=== PATIENT | female | born 1940 | race Caucasian/White ===

== ENCOUNTER → 2018-04-19 07:21 | Outpatient (CLI) | payer MEDICARE, BC, SELFPAY ==
[2018-04-19 08:41] LABS: Cholesterol 139 mg/dL (140-199); HDL Cholesterol 52 mg/dL (40-60); LDL Cholesterol Calculated 57 mg/dL (<100); Triglycerides 150 mg/dL (35-150)
== END ==
PROVIDERS: PCP Family Medicine; Visit Provider Family Medicine
DX: E78.00 Pure hypercholesterolemia, unspecified (principal)
CPT/HCPCS: 36415; 80061

== ENCOUNTER → 2018-07-04 10:05 | Outpatient (CLI) | payer MEDICARE, BC, SELFPAY | PROVIDERS: Family Provider Orthopaedic Surgery; Visit Provider Student in an Organized Health Care Education/Training Program | DX: M85.88 Other specified disorders of bone density and structure, other site (principal); Z78.0 Asymptomatic menopausal state; Z82.62 Family history of osteoporosis | CPT/HCPCS: 77080 ==

== ENCOUNTER → 2018-07-29 11:35 | Outpatient (CLI) | payer MEDICARE, BC, SELFPAY ==
--- NOTE | 2018-07-29 | DI.MG.S_ITS ---
BILATERAL DIGITAL SCREENING MAMMOGRAM 3D/2D WITH CAD: 07/29/2018 CLINICAL: Routine screening. Comparison is made to exams dated: 07/12/2017 mammogram, 07/04/2016 mammogram - [facility], and 06/10/2015 mammogram - [facility]. The tissue of both breasts is predominantly fatty. Current study was also evaluated with a Computer Aided Detection (CAD) system. No significant masses, calcifications, or other findings are seen in either breast. There has been no significant interval change. IMPRESSION: NEGATIVE There is no mammographic evidence of malignancy. A 1 year screening mammogram is recommended. This exam was interpreted at Station ID: [id number]. NOTE: For mammograms, a report in lay terms will be sent to the patient. Approximately 15% of breast malignancies will not be visualized mammographically. In the management of a palpable breast mass, a negative mammogram must not discourage biopsy of a clinically suspicious lesion. Electronically Signed By: Elena [email or web address]:07/29/2018 13:15:58 letter sent: Normal Exam ACR BI-RADS Category 1: Negative [id number]
== END ==
PROVIDERS: Visit Provider Student in an Organized Health Care Education/Training Program
DX: Z12.31 Encounter for screening mammogram for malignant neoplasm of breast (principal)
CPT/HCPCS: 77063; 77067

== ENCOUNTER → 2018-09-09 09:35 | Outpatient (CLI) | payer MEDICARE, BC, SELFPAY ==
[2018-09-09 11:15] LABS: Vitamin D 25 Hydroxy (D3) 58.3 ng/mL (30.0-100.0)
== END ==
PROVIDERS: PCP Student in an Organized Health Care Education/Training Program; Visit Provider Student in an Organized Health Care Education/Training Program
DX: M85.80 Other specified disorders of bone density and structure, unspecified site (principal)
CPT/HCPCS: 36415; 82306

== ENCOUNTER → 2019-01-10 14:24 | Outpatient (CLI) | payer MEDICARE, BC, SELFPAY ==
[2019-01-10 15:43] LABS: Blood Urea Nitrogen 31 mg/dL (7-17); Calcium 9.6 mg/dL (8.4-10.2); Carbon Dioxide 30 mmol/L (22-32); Chloride 98 mmol/L (98-107); Estimated Glomerular Filt Rate 53.5 mL/min (>60); Glucose 80 mg/dL (80-110); HEMOLYSIS < 15 (0-50); Sodium 138 mmol/L (137-145)
== END ==
PROVIDERS: PCP Student in an Organized Health Care Education/Training Program; Visit Provider Student in an Organized Health Care Education/Training Program
DX: I10 Essential (primary) hypertension (principal); Z51.81 Encounter for therapeutic drug level monitoring; Z79.1 Long term (current) use of non-steroidal anti-inflammatories (NSAID)
CPT/HCPCS: 36415; 80048

== ENCOUNTER → 2019-10-01 10:05 | Outpatient (CLI) | payer MEDICARE, BC, SELFPAY | PROVIDERS: PCP Student in an Organized Health Care Education/Training Program; Visit Provider Student in an Organized Health Care Education/Training Program | DX: M85.88 Other specified disorders of bone density and structure, other site (principal); Z78.0 Asymptomatic menopausal state; Z91.89 Other specified personal risk factors, not elsewhere classified; Z82.62 Family history of osteoporosis | CPT/HCPCS: 77080 ==

== ENCOUNTER → 2020-01-27 13:03 | Outpatient (CLI) | payer MEDICARE, BC, SELFPAY ==
[2020-01-27 13:40] LABS: BUN Creatinine Ratio 17.8 (6-22); Blood Urea Nitrogen 19 mg/dL (7-17); Carbon Dioxide 29 mmol/L (22-32); Chloride 100 mmol/L (98-107); Estimated Glomerular Filt Rate 49.3 mL/min (>60); Glucose 94 mg/dL (80-110); HEMOLYSIS < 15 (0-50); Potassium 4.5 mmol/L (3.4-5.1); Sodium 138 mmol/L (137-145)
== END ==
PROVIDERS: PCP Student in an Organized Health Care Education/Training Program; Referring Provider Student in an Organized Health Care Education/Training Program; Visit Provider Student in an Organized Health Care Education/Training Program
DX: I10 Essential (primary) hypertension (principal); Z79.1 Long term (current) use of non-steroidal anti-inflammatories (NSAID)
CPT/HCPCS: 36415; 80048

== ENCOUNTER → 2020-02-04 12:02 | Outpatient (CLI) | payer MEDICARE, BC, SELFPAY ==
--- NOTE | 2020-02-04 12:05 | DI.US.S_ITS ---
PROCEDURE: US RENAL COMPLETE INDICATIONS: WORSENING RENAL FUNCTION TECHNIQUE: Real-time scanning was performed of the kidneys and bladder, with image documentation. COMPARISON: None. FINDINGS: Kidneys: Kidneys are normal in size. Right kidney measures 9.1 cm long; left kidney measures 10.4 cm long. Right renal cortical thickness is 1.0 cm; left renal cortical thickness is 0.8 cm. Renal cortical echotexture is normal. No hydronephrosis or nephrolithiasis. No suspicious solid mass lesions. Bladder: Pre-void bladder volume is 194 mL. Post-void residual is 51 mL. Pre-void images demonstrate no intraluminal masses or stones. On pre-void images, bilateral ureteral jets are noted with color Doppler interrogation. (Of note, ureteral jets may not be detectable in up to 25% of cases due to insufficient differences in specific gravity between ureteral and bladder urine). Miscellaneous: No free pelvic fluid. IMPRESSION: 1. No hydronephrosis or nephrolithiasis. 2. Large postvoid residual. Dictated by: Elena Betts M.D. on 02/04/2020 at 17:03 Approved by: Elena Betts M.D. on 02/04/2020 at 17:04
== END ==
PROVIDERS: PCP Student in an Organized Health Care Education/Training Program; Referring Provider Student in an Organized Health Care Education/Training Program; Visit Provider Student in an Organized Health Care Education/Training Program
DX: N17.9 Acute kidney failure, unspecified (principal)
CPT/HCPCS: 76770

== ENCOUNTER → 2020-02-09 09:33 | Outpatient (CLI) | payer MEDICARE, BC, SELFPAY ==
[2020-02-09 10:22] LABS: Bacteria Urine None Seen; RBC Urine None Seen (0-5/HPF); WBC Urine None Seen (0-5/HPF)
[2020-02-09 10:54] LABS: Appearance Urine UA CLEAR; Bilirubin Urine UA NEGATIVE (NEGATIVE); Color Urine UA YELLOW; Glucose Urine UA NEGATIVE (Negative); Ketones Urine UA NEGATIVE (NEGATIVE); Leukocyte Esterase Urine UA NEGATIVE (NEGATIVE); Nitrite Urine UA NEGATIVE (Negative); Occult Blood Urine UA NEGATIVE (Negative); Protein Urine UA NEGATIVE (Negative); Specific Gravity Urine UA 1.015 (1.000-1.035); Urobilinogen Urine UA 0.2 E.U./dL (0.2)
[2020-02-09 11:22] LABS: Culture Indicated Urine Cult Not Indicated; Urine Comments Microscopic Normal
[2020-02-09 12:46] LABS: Creatinine Urine Random 88.7 mg/dL
[2020-02-09 12:53] LABS: Microalbumi Creatinin Ratio Ur 6.7 ug/mg CR (<30); Microalbumin Urine Random < 0.6 mg/dL (0-1.6)
== END ==
PROVIDERS: PCP Student in an Organized Health Care Education/Training Program; Referring Provider Student in an Organized Health Care Education/Training Program; Visit Provider Student in an Organized Health Care Education/Training Program
DX: N17.9 Acute kidney failure, unspecified (principal)
CPT/HCPCS: 81001; 82043; 82570

== ENCOUNTER → 2021-08-02 16:00 | Outpatient (CLI) | payer MEDICARE, BC, SELFPAY ==
[2021-08-02 19:53] LABS: BUN Creatinine Ratio 21.4 (6-22); Blood Urea Nitrogen 24 mg/dL (7-17); Calcium 10.4 mg/dL (8.4-10.2); Carbon Dioxide 31 mmol/L (22-32); Chloride 97 mmol/L (98-107); Estimated Glomerular Filt Rate 46.7 mL/min (>60); Glucose 82 mg/dL (80-110); HEMOLYSIS 26 (0-50); Potassium 3.8 mmol/L (3.4-5.1); Sodium 140 mmol/L (137-145)
== END ==
PROVIDERS: PCP Student in an Organized Health Care Education/Training Program; Referring Provider Student in an Organized Health Care Education/Training Program; Visit Provider Student in an Organized Health Care Education/Training Program
DX: I10 Essential (primary) hypertension (principal)
CPT/HCPCS: 36415; 80048

== ENCOUNTER → 2021-11-07 10:34 | Outpatient (CLI) | payer MEDICARE, BC, SELFPAY ==
--- NOTE | 2021-11-07 10:36 | DI.RAD.S_ITS ---
PROCEDURE: XR DEXA AXIAL SKELETON INDICATIONS: Osteoporosis screening COMPARISON: None. FINDINGS: This blank DEXA report has been sent in error by the PACS system. The correct and complete report will be forthcoming in 1-2 days. Thank you for your patience and understanding. Dictated by: Linh Yang MD, PhD on 11/07/2021 at 13:27 Approved by: Linh Yang MD, PhD on 11/07/2021 at 13:28
== END ==
PROVIDERS: PCP Student in an Organized Health Care Education/Training Program; Referring Provider Student in an Organized Health Care Education/Training Program; Visit Provider Student in an Organized Health Care Education/Training Program
DX: Z78.0 Asymptomatic menopausal state (principal); Z82.62 Family history of osteoporosis; M85.88 Other specified disorders of bone density and structure, other site
CPT/HCPCS: 77080

== ENCOUNTER → 2022-09-19 12:54 | Outpatient (CLI) | payer MEDICARE, BC, SELFPAY ==
[2022-09-19 13:52] LABS: BUN Creatinine Ratio 14.3 (6-22); Blood Urea Nitrogen 15 mg/dL (7-17); Calcium 9.8 mg/dL (8.4-10.2); Carbon Dioxide 29 mmol/L (22-32); Chloride 98 mmol/L (98-107); Estimated Glomerular Filt Rate 53 mL/min (>60); Glucose 108 mg/dL (80-110); HEMOLYSIS < 15 (0-50); Potassium 3.6 mmol/L (3.4-5.1); Sodium 138 mmol/L (137-145)
== END ==
PROVIDERS: PCP Student in an Organized Health Care Education/Training Program; Referring Provider Internal Medicine; Visit Provider Internal Medicine
DX: I10 Essential (primary) hypertension (principal); N18.31 Chronic kidney disease, stage 3a
CPT/HCPCS: 36415; 80048

== ENCOUNTER → 2022-11-09 14:18 | Outpatient (CLI) | payer MEDICARE, BC, SELFPAY | PROVIDERS: Family Provider Student in an Organized Health Care Education/Training Program; PCP Student in an Organized Health Care Education/Training Program; Referring Provider Student in an Organized Health Care Education/Training Program; Visit Provider Student in an Organized Health Care Education/Training Program | DX: Z78.0 Asymptomatic menopausal state (principal); M81.0 Age-related osteoporosis without current pathological fracture; Z79.83 Long term (current) use of bisphosphonates | CPT/HCPCS: 77080 ==

== ENCOUNTER → 2022-11-29 17:09 | Outpatient (CLI) | payer MEDICARE, BC, SELFPAY ==
[2022-11-29 17:43] LABS: Add Manual Diff / Slide Review NO; Basophils Absolute Auto 100 /uL (0-100); Basophils Percent Auto 0.8 % (0-2); Eosinophils Absolute Auto 200 /uL (0-450); Eosinophils Percent Auto 2.8 % (2-4); Hematocrit 36.8 % (36-46); Hemoglobin 12.8 g/dL (12.0-16.0); Lymphocytes Absolute Auto 1600 /uL (1100-4500); Lymphocytes Percent Auto 22.3 % (25-40); Mean Corpuscular HGB Conc 34.7 % (30-36); Mean Corpuscular Hemoglobin 31.6 PG (26-34); Mean Corpuscular Volume 91.1 fL (80-100); Monocytes Absolute Auto 800 /uL (0-900); Monocytes Percent Auto 11.5 % (3-14); Neutrophils Absolute Auto 4400 /uL (1500-7000); Neutrophils Percent Auto 62.6 % (50-75); Platelet Count 262 X10^3/uL (150-400); Red Blood Cell Count 4.04 X10^6/uL (4.0-5.2); Red Cell Distribution Width 13.4 % (11.6-14.8)
[2022-11-29 18:14] LABS: Alanine Aminotransferase 16 IU/L (<35); Albumin 4.3 g/dL (3.5-5.0); Albumin Globulin Ratio 1.3 (1.0-2.8); Alkaline Phosphatase 82 U/L (38-126); Aspartate Aminotransferase 31 IU/L (14-36); Bilirubin Total 0.4 mg/dL (0.2-1.3); Bilirubin Unconjugated 0.2 mg/dL (0.0-1.1); Globulin 3.2 g/dL (1.7-4.1); HEMOLYSIS < 15 (0-50); Total Protein 7.5 g/dL (6.3-8.2)
[2022-11-29 18:31] LABS: Vitamin D 25 Hydroxy (D3) 56.4 ng/mL (30.0-100.0)
[2022-11-29 18:45] LABS: TSH w/ Reflex to FT4 2.94 uIU/mL (0.47-4.68)
[2022-11-29 19:04] LABS: Vitamin B12 580 pg/mL (239-931)
== END ==
PROVIDERS: Family Provider Student in an Organized Health Care Education/Training Program; PCP Student in an Organized Health Care Education/Training Program; Referring Provider Student in an Organized Health Care Education/Training Program; Visit Provider Student in an Organized Health Care Education/Training Program
DX: F03.90 Unspecified dementia, unspecified severity, without behavioral disturbance, psychotic disturbance, mood disturbance, and anxiety (principal)
CPT/HCPCS: 36415; 80076; 82306; 82607; 84443; 85025

== ENCOUNTER → 2023-01-24 08:41 | Outpatient (CLI) | payer MEDICARE, BC, SELFPAY ==
--- NOTE | 2023-01-24 08:43 | DI.MRI.S_ITS ---
PROCEDURE: MR HEAD/BRAIN WO CON INDICATIONS: DEMENTIA TECHNIQUE: Non-contrast axial T1 spin echo, axial T2 fast spin echo, sagittal and axial FLAIR, coronal T2 fast spin echo, axial gradient echo, axial diffusion and ADC through the brain. COMPARISON: None. FINDINGS: Image quality: Excellent. CSF spaces: Ventricles appear symmetric in size and shape. Basal cisterns are patent. No extra-axial fluid collections. Brain: No intracranial bleeds or mass effects. There is cerebral volume loss for age. There are periventricular and deep white matter chronic small vessel ischemic changes. Brainstem appears normal. Diffusion-weighted images show no acute ischemic insults. No chronic ischemic insults. Normal intravascular flow voids are present. Skull and face: Calvarial bone marrow is normal in signal. Orbits are normal. Sinuses: Sinuses and mastoids are clear. IMPRESSION: 1. Volume loss and small vessel ischemic disease. 2. No acute process. No recent infarct. Dictated by: Tiara Bowden M.D. on 01/24/2023 at 9:44 Approved by: Tiara Bowden M.D. on 01/24/2023 at 9:46
== END ==
PROVIDERS: Family Provider Student in an Organized Health Care Education/Training Program; PCP Student in an Organized Health Care Education/Training Program; Referring Provider Student in an Organized Health Care Education/Training Program; Visit Provider Student in an Organized Health Care Education/Training Program
DX: F03.B0 Unspecified dementia, moderate, without behavioral disturbance, psychotic disturbance, mood disturbance, and anxiety
CPT/HCPCS: 70551

== ENCOUNTER 2023-02-07 13:15 | Outpatient (RCR) | payer MEDICARE, BC, SELFPAY ==
--- NOTE | 2022-11-17 17:29 | ST.OP.ACL ---
Visit Care Team Role Provider Type Mario Wharton MD Attending Provider Physician Family Provider Primary Care Provider Referring Provider Specialty: Internal Medicine Address: [address] [place] [address], [address], [place], [address] Email: [email or web address] Adult Cognitive Linguistic Evaluation PSYCHIATRY INSTRUCTOR Adult Cognitive Linguistic Eval Start: 11/16/22 12:01 Freq: Status: Active Protocol: Document 11/16/22 12:23 (Rec: 11/16/22 13:25 [id number]) Adult Cognitive Linguistic Evaluation Session Time Visit Start Time 10:30 Visit Stop Time 11:40 Total Visit Minutes 70 Visit Information Visit Number 1 Plan of Care Dates 11/16/22 - 02/16/23 Insurance Information Medicare Referral Referring Provider Dr. Mario Wharton Reason for Referral Memory concerns Setting Assessment Location Outpatient Care Visit Type Note Type Initial evaluation Patient Information Identification Type Name Patient History Jazzmine is an 82 year old woman who was referred by her PCP, Dr. Mario Wharton for a cognitive evaluation due to concerns from Jazzmine's family regarding a change in cognitive performance characterized by memory loss, disorganization, increased social isolation, and disorientation. Decline in memory is reported to have occurred 6-12 months ago, per daughter's statement during today's evaluation. Per PCP report on 10/02/22: Memory problems: Recently discussed in a visit on 2021. Her family members have expressed concerns about gradually worsening memory. Her daughter confirms this is continuing to interfere with day-to-day activities. During our previous initial assessment in 2019, she had what looked like an isolated functional memory deficit, but is now complaining of short- term memory losses and sometimes forgets about relatively large events. Definitely has difficulty tracking complex tasks. Has not injured herself or had any accidents related to this main complaint. Denies delusions, compulsions, hallucinations, obsessions, confabulation, SI/HI. Further denies focal neurological signs. There has been no interval change in her status since we last talked about this in April. Language(s) Spoken in the Home Danish Occupation Status Retired Previous Therapy Previous Speech-Language Therapy No Subjective Patient Report Jazzmine arrived to the session alone. Her daughter, Joan, remained on the phone throughout the entire session and participated during the interview and debrief. Jazzmine expressed denial of change in cognitive communication status or decline in activities of daily living. Joan reported that Jazzmine experiences disorientation (e.g., getting lost while driving), disorganization (e.g., used to be very organized but is now misplacing or getting cluttered), and a change in diet due to neglecting consistent food intake (e.g., eating breakfast, lunch, dinner). Joan also reported that Jazzmine is not following conversations well or is not retaining information and will engage in a conversation loop of asking repeated questions during conversation with others. Joan reported that Jazzmine's car was taken away due to concerns regarding getting lost; when mentioned, Jazzmine reported that she did not know that. Joan reports that Jazzmine requires reminders and support to take her medications and regular meals. Joan reported a negative change in the family dynamic due to Jazzmine's denial of cognitive change or difficulties whereby Jazzmine will express frustration over her family pointing out her difficulties. Jazzmine lives with her and younger daughter who oversees the care of Jazzmine and her . Mental Status Responsive,Cooperative Assessment Oral Motor Examination Completed No Results No s/s of dysarthria were present. Patient was fully intelligible and did not report concerns regarding her speech. Informal Assessment Receptive Language Normal No: Uncertainty when given longer sentences and complex speech. Receptive Language Impairment(s) Following 2-step commands, Following 3-step commands, Reading comprehension, Comprehension of conversation Expressive Language Normal Yes: No difficulties expressing self and feelings during conversation. Expressive Language Impairment(s) Automatic speech,Expression of basic wants/needs,Written expression Pragmatic Language Normal Yes: Appropriate social language with both clinicians. Pragmatic Language Impairment(s) Turn-taking,Topic maintenance Speech Normal Yes: No concerns with speech. Articulation and resonance normal. Cognition Normal No Cognitive Impairment(s) Orientation,Attention,Short- term memory,Long-term memory, Executive functioning,Problem solving,Safety awareness Formal Assessment Standardized Test/Screener Type Scales of Cognitive and Communicative Ability (SCCAN) Administration Complete Results Jazzmine received a total raw score of 63 and placed below the 1st percentile rank and in the SCCAN Index of 50. Her results indicate a moderate cognitive impairment. She demonstrated greatest difficulty in the areas of Memory, Reading Comprehension, Attention. She demonstrated mild impairment in Orientation , Speech Comprehension, and Problem Solving. She demonstrated strengths in the areas of Writing and Oral Expression. Findings/Results Cognitive Function Moderately impaired Findings Based on the formal assessment , Jazzmine experiences greatest cognitive communication deficits in the areas of memory and attention. This contributes towards her decreased abilities of executive function (e.g., organization, planning, adaptable thinking, etc.) and affects her ability to functioning independently. Jazzmine was oriented to place and person, not time. Jazzmine demonstrates difficulty recalling information with multiple rollins pieces of information (e.g., time, person, date, purpose). She also demonstrates difficulty with comprehending complex sentences. She demonstrated some self-awareness of her performance and ability during the test when she verbally reflected: I don't know what to do here or I know this is wrong. Jazzmine's attention also plays a large role in her executive functioning abilities whereby inattention hinders retail center receptionist of messages and information. Jazzmine demonstrated strengths in oral expression and writing, whereby she used grammatically correct sentences and demonstrated legible and purposeful handwriting. Jazzmine was observed to follow conversation with both clinicians and her daughter on the phone. She was seen using and checking her agenda to check for appointment dates when scheduling upcoming treatment sessions without prompting. As reported by her daughter, Jazzmine has gotten lost when driving, indicating decreased safety awareness. Based on interview, informal observations, family input, and assessment, it is recommended that Jazzmine attend speech-language therapy for purposes to improve abilities to meet ADLs and safety, especially for purposes of health and emergency. Recommend referral to neuropsych or neurologist for further assessment. Cognitive Communication Deficits Self-awareness of Cognitive- Limited awareness (minimal Communication Deficits appreciation without specificity) Impact on Functioning Activity Limits/Particip.Rest. Mild: General Tasks and Demands Mod: Household Tasks Safety Risks Mod: Managing Medication Traveling Alone in Community Prognosis Prognosis Good Based on Cognitive status,Family support Comment Strong family support and external strategies, and written and oral express Plan of Care Speech-Language Treatment Yes Frequency 1x/week Duration 3 months Patient/Caregiver Education Described results of evaluation,Patient expressed understanding of evaluation, Patient expressed agreement with goals and treatment plans ,Family/caregivers expressed understanding of evaluation, Family/caregivers expressed agreement with goals and treatment plan,Patient expressed understanding of safety precautions,Patient requires further education/ training,Family/caregivers require further education/ training Short Term Goals Jazzmine will use external compensatory strategies (e.g., calendar, notification board, medicine organizer, smartphone notifications, note -taking) to remember important and relevant information in everyday activities with 90% success. Scale Manager Goals Jazzmine will demonstrate and report independent use of compensatory memory strategies to aid in everyday tasks with 100% success. Discharge Recommendations Home
--- NOTE | 2022-11-17 17:30 | ST.OPPOC ---
Physical, Occupational & Speech Therapy At [facility] Visit Care Team Role Provider Type Mario Wharton MD Attending Provider Physician Family Provider Primary Care Provider Referring Provider Address: [address] [place] [address], [address], [place], [address] Speech Pathology Plan of Care EARTH SCIENCE PROFESSOR Clinical Instructor Line Start: 11/16/22 12:01 Freq: Status: Active Protocol: Document 11/16/22 12:23 (Rec: 11/16/22 13:25 [id number]) Clinical Instructor Signature Clinical Instructor Clinical Instructor Yes Speech Pathology Plan of Care Plan of Care Dates 11/16/22 - 02/16/[address] Mario Wharton Patient History Jazzmine is an 82 year old woman who was referred by her PCP, Dr. Mario Wharton for a cognitive evaluation due to concerns from Jazzmine's family regarding a change in cognitive performance characterized by memory loss, disorganization, increased social isolation, and disorientation. Decline in memory is reported to have occurred 6- 12 months ago, per daughter's statement during today's evaluation. Per PCP report on 10/02/22: Memory problems: Recently discussed in a visit on 04/26/2022. Her family members have expressed concerns about gradually worsening memory. Her daughter confirms this is continuing to interfere with day-to-day activities. During our previous initial assessment in 2019, she had what looked like an isolated functional memory deficit, but is now complaining of short-term memory losses and sometimes forgets about relatively large events. Definitely has difficulty tracking complex tasks. Has not injured herself or had any accidents related to this main complaint. Denies delusions, compulsions, hallucinations, obsessions, confabulation, SI/HI. Further denies focal neurological signs. There has been no interval change in her status since we last talked about this in April. Self-awareness of Cognitive- Limited awareness (minima Communication Deficits General Tasks and Demands Mild Household Tasks Moderate Managing Medication Moderate Traveling Alone in Community Moderate Short Term Goals Jazzmine will use external compensatory strategies (e.g., calendar, notification board, medicine organizer, smartphone notifications, note-taking ) to remember important and relevant information in everyday activities with 90% success. Senior Enterprise Architect Goals Jazzmine will demonstrate and report independent use of compensatory memory strategies to aid in everyday tasks with 100% success. Comment: Electronically Signed by: Lizette Zelaya 11/17/22 2015 If you are in agreement with this Plan of Care, please return a signed and dated copy. I have reviewed this Plan of Care and certify that the skilled therapy services above are required to meet the patient?s needs. Physician Signature Date Printed Name and Credentials Clinical Instructor Signature Printed Name and Credentials
--- NOTE | 2022-11-23 17:12 | ST.OPTN ---
Visit Care Team Role Provider Type Mario Wharton MD Attending Provider Physician Family Provider Primary Care Provider Referring Provider Address: [address] [place] [address], [address], [place], [address] [facility] Treatment Note [facility] Clinical Instructor Line Start: 11/16/22 12:01 Freq: Status: Active Protocol: Document 11/16/22 12:23 (Rec: 11/16/22 13:25 [id number]) Clinical Instructor Signature Clinical Instructor Clinical Instructor Yes [facility] Treatment Note Start: 11/23/22 14:59 Freq: Status: Active Protocol: Document 11/23/22 15:00 LNK (Rec: 11/23/22 15:36 LNK [id number]) Speech Pathology Treatment Note Session Time Visit Start Time 09:30 Visit Stop Time 10:30 Total Visit Minutes 60 Visit Information Visit Number 2 Plan of Care Dates 11/16/22 - 02/16/23 Setting Treatment Setting Outpatient Care Visit Type Note Type Treatment Note Next Note Type Next Note Type Treatment Note General Information Patient History Jazzmine is an 82 year old woman who was referred by Dr. Mario Wharton for a cognitive evaluation due to concerns from Jazzmine's family regarding a change in cognitive performance characterized by memory loss, disorganization, increased social isolation, and disorientation. Decline in memory is reported to have occured 6-12 months ago, per daughter Joan. Jazzmine expresses denial of change in cognitive communication status or decline in activities of daily living. Joan reported that Jazzmine experiences disorientation (e.g., getting lost while driving), disorganization (e.g., used to be very organized but is now misplacing or getting cluttered), and a change in diet due to neglecting consistent food intake (e.g., eating breakfast, lunch, dinner). Joan also reported that Jazzmine is not following conversations well or is not retaining information. Jazzmine has been observed to engage in a conversation loops of asking repeated questions during conversation with others. Joan reported that Jazzmine's car was taken away due to concerns regarding getting lost; when mentioned, Jazzmine reported that she did not know that. Joan reports that Jazzmine requires reminders and support to take her medications and regular meals. Jazzmine lives with her . Jazzmine's youngest daughter oversees the care of Jazzmine and her lives next doot to her parents. Subjective Identification Type Name,Date of Others Present Family Observations/Patient Presentation Based on formal assessment results obtained on 11.16.22, Jazzmine experiences significant cognitive communication deficits in the areas of memory and attention. This negatively impacts her decreased abilities of executive function (e.g., organization, planning, adaptable thinking, etc.) and affects her ability to functioning independently. Jazzmine was oriented to place and person, not time. She demonstrated difficulty recalling information with multiple rollins pieces of information (e.g., time, person, date, purpose) and complex sentences. She demonstrated some self- awareness of her performance and ability during the test when she verbally reflected: I don't know what to do here or I know this is wrong. Chief Complaint(s) Cognitive Patient Knowledge/Awareness of [facility] Role Fair in Treatment Parent/Caretake Knowledge/Awareness of Good [facility] Role in Treatment Objective Short Term Goals 1) Jazzmine and caregivers will be educated in, and will implement, external memory strategies to enable Jazzmine to maintain independence and ability to perform ADLs. 2) Jazzmine and caregivers will set up a white board in as a central location for information (e.g., calendar, notification white board and meal time check-off lists etc. ) to aid Jazzmine in orientation to planned activities and important information re: ADLs per pt/family report 3) Jazzmine will remember to check the white board for daily schedule/events, important and relevant information in everyday activities daily per pt/family report. Treatment Activities Jazzmine was seen with her daughter Joan. Jazzmine continued to indicate she ffelt that her memory skills and overall cognition was fine. Jazzmine's daughter came with many questions, which were answered to her satisfaction. Therapeutic strategies were described to Jazzmine and her daughter, which included education re: external memory strategies, working with Jazzmine to use such strategies to navigate ADLs and to increase her safety at home. Additionally, both Jazzmine and her mother were encouraged to consult with Dr. Cordero re; Jazzmine's safety with driving. A referral to a neurologist was also recommended with a need to discuss Jazzmine's options with Dr. Cordero. Assessment Patient Response to Treatment Fair Rehab Potential Good Impairments Identified Cognitive communication Reviewed with Patient Goals,Home Exercise Program Patient/Caregiver Understanding Good Plan Amount of Therapy Recommended 3 Months Frequency of Treatment Once a Week Length of Session 60 Minutes Treatment Emphasis Next Session Prt/family education; strategy introduction Therapeutic Contents Cognitive-Linguistic Training Provided Patient/Caregiver Instruction Plan of Care,Questions/ Concerns Suggested Referral Neurology
--- NOTE | 2022-11-23 17:13 | ST.OPPOC ---
Physical, Occupational & Speech Therapy At [facility] Visit Care Team Role Provider Type Mario Wharton MD Attending Provider Physician Family Provider Primary Care Provider Referring Provider Address: [address] [place] [address], [address], [place], [address] Speech Pathology Plan of Care ASSISTANT CITY ATTORNEY Clinical Instructor Line Start: 11/16/22 12:01 Freq: Status: Active Protocol: Document 11/16/22 12:23 (Rec: 11/16/22 13:25 [id number]) Clinical Instructor Signature Clinical Instructor Clinical Instructor Yes Speech Pathology Plan of Care Plan of Care Dates 11/16/22 - 02/16/[address] Mario Wharton Patient History Jazzmine is an 82 year old woman who was referred by Dr. Mario Wharton for a cognitive evaluation due to concerns from Jazzmine's family regarding a change in cognitive performance characterized by memory loss, disorganization, increased social isolation, and disorientation. Decline in memory is reported to have occurred 6-12 months ago, per daughter Joan. Jazzmine expresses denial of change in cognitive communication status or decline in activities of daily living. Joan reported that Jazzmine experiences disorientation ( e.g., getting lost while driving), disorganization (e.g., used to be very organized but is now misplacing or getting cluttered), and a change in diet due to neglecting consistent food intake (e.g., eating breakfast, lunch, dinner). Joan also reported that Jazzmine is not following conversations well or is not retaining information. Jazzmine has been observed to engage in a conversation loops of asking repeated questions during conversation with others. Joan reported that Jazzmine's car was taken away due to concerns regarding getting lost; when mentioned, Jazzmine reported that she did not know that. Jazzmine lives with her . Jazzmine's youngest daughter oversees the care of Jazzmine and her lives next door to her parents. Impairments Identified Cognitive communication Self-awareness of Cognitive- Limited awareness (minima Communication Deficits General Tasks and Demands Mild Household Tasks Moderate Managing Medication Moderate Traveling Alone in Community Moderate Short Term Goals 1) Jazzmine and caregivers will be educated in, and will implement, external memory strategies to enable Jazzmine to maintain independence and ability to perform ADLs. 2) Jazzmine and caregivers will set up a white board in as a central location for information (e.g., calendar, notification white board and meal time check-off lists etc.) to aid Jazzmine in orientation to planned activities and important information re: ADLs per pt/family report 3) Jazzmine will remember to check the white board for daily schedule/events, important and relevant information in everyday activities daily per pt/family report. Comment: Electronically Signed by: LIAM Charles 11/23/22 [id number] If you are in agreement with this Plan of Care, please return a signed and dated copy. I have reviewed this Plan of Care and certify that the skilled therapy services above are required to meet the patient?s needs. Physician Signature Date Printed Name and Credentials Clinical Instructor Signature Printed Name and Credentials
--- NOTE | 2022-11-30 12:05 | ST.OPTN ---
Visit Care Team Role Provider Type Mario Wharton MD Attending Provider Physician Family Provider Primary Care Provider Referring Provider Address: [address] [place] [address], [address], [place], [address] WELDER OPERATOR Treatment Note WELDER OPERATOR Clinical Instructor Line Start: 11/16/22 12:01 Freq: Status: Active Protocol: Document 11/16/22 12:23 (Rec: 11/16/22 13:25 [id number]) Clinical Instructor Signature Clinical Instructor Clinical Instructor Yes WELDER OPERATOR Treatment Note Start: 11/23/22 14:59 Freq: Status: Active Protocol: Document 11/30/22 12:00 LNK (Rec: 11/30/22 12:05 LNK [id number]) Speech Pathology Treatment Note Session Time Visit Start Time 09:30 Visit Stop Time 10:30 Total Visit Minutes 60 Visit Information Visit Number 3 Plan of Care Dates 11/16/22 - 02/16/23 Setting Treatment Setting Outpatient Care Visit Type Note Type Treatment Note Next Note Type Next Note Type Treatment Note General Information Patient History Jazzmine is an 82 year old woman who was referred by Dr. Mario Wharton for a cognitive evaluation due to concerns from Jazzmine's family regarding a change in cognitive performance characterized by memory loss, disorganization, increased social isolation, and disorientation. Decline in memory is reported to have occured 6-12 months ago, per daughter Joan. Jazzmine expresses denial of change in cognitive communication status or decline in activities of daily living. Joan reported that Jazzmine experiences disorientation (e.g., getting lost while driving), disorganization (e.g., used to be very organized but is now misplacing or getting cluttered), and a change in diet due to neglecting consistent food intake (e.g., eating breakfast, lunch, dinner). Joan also reported that Jazzmine is not following conversations well or is not retaining information. Jazzmine has neen observed to engage in a conversation loops of asking repeated questions during conversation with others. Joan reported that Jazzmine's car was taken away due to concerns regarding getting lost; when mentioned, Jazzmine reported that she did not know that. Joan reports that Jazzmine requires reminders and support to take her medications and regular meals. Jazzmine lives with her . Jazzmine's youngest daughter oversees the care of Jazzmine and her lives next doot to her parents. Subjective Identification Type Name,Date of Others Present Family Observations/Patient Presentation Based on formal assessment results obtained on 11.16.22, Jazzmine experiences significant cognitive communication deficits in the areas of memory and attention. This negatively impacts her decreased abilities of executive function (e.g., organization, planning, adaptable thinking, etc.) and affects her ability to functioning independently. Jazzmine was oriented to place and person, not time. She demonstrated difficulty recalling information with multiple rollins pieces of information (e.g., time, person, date, purpose) and complex sentences. She demonstrated some self- awareness of her performance and ability during the test when she verbally reflected: I don't know what to do here or I know this is wrong. Chief Complaint(s) Cognitive Patient Knowledge/Awareness of WELDER OPERATOR Role Fair in Treatment Parent/Caretake Knowledge/Awareness of Good WELDER OPERATOR Role in Treatment Objective Short Term Goals 1) Jazzmine and caregivers will be educated in, and will implement, external memory strategies to enable Jazzmine to maintain independence and ability to perform ADLs. 2) Jazzmine and caregivers will set up a white board in as a central location for information (e.g., calendar, notification white board and meal time check-off lists etc. ) to aid Jazzmine in orientation to planned activities and important information re: ADLs per pt/family report 3) Jazzmine will remember to check the white board for daily schedule/events, important and relevant information in everyday activities daily per pt/family report. Treatment Activities Jazzmine was seen again with her daughter Joan. Jazzmine continues to indicate she is capable of driving and cooking , etc. her daughter described an incident of forgetting something on the stove that was burned and smoking. Jazzmine's daughter came with more questions, which were answered to her A goal Setting Worksheet was provided and described for the pt and her daughter to complete. Functional rehabilitation was defined and explained to Jazzmine and daughter. The will retun the goal setting worksheet next session. Assessment Patient Response to Treatment Fair Rehab Potential Good Impairments Identified Cognitive communication Reviewed with Patient Goals,Home Exercise Program Patient/Caregiver Understanding Good Plan Amount of Therapy Recommended 3 Months Frequency of Treatment Once a Week Length of Session 60 Minutes Treatment Emphasis Next Session Prt/family education; strategy introduction Therapeutic Contents Cognitive-Linguistic Training Provided Patient/Caregiver Instruction Plan of Care,Questions/ Concerns Suggested Referral Neurology
--- NOTE | 2022-12-21 16:32 | ST.OPTN ---
Visit Care Team Role Provider Type Mario Wharton MD Attending Provider Physician Family Provider Primary Care Provider Referring Provider Address: [address] [place] [address], [address], [address] ROLL OUT MANAGER Treatment Note ROLL OUT MANAGER Clinical Instructor Line Start: 11/16/22 12:01 Freq: Status: Active Protocol: Document 11/16/22 12:23 (Rec: 11/16/22 13:25 [id number]) Clinical Instructor Signature Clinical Instructor Clinical Instructor Yes ROLL OUT MANAGER Treatment Note Start: 11/23/22 14:59 Freq: Status: Active Protocol: Document 12/21/22 15:07 LNK (Rec: 12/21/22 16:31 LNK [id number]) Speech Pathology Treatment Note Session Time Visit Start Time 09:30 Visit Stop Time 10:30 Total Visit Minutes 120 Visit Information Visit Number 4 Plan of Care Dates 11/16/22 - 02/16/23 Setting Treatment Setting Outpatient Care Visit Type Note Type Treatment Note Next Note Type Next Note Type Treatment Note General Information Patient History Jazzmine is an 82 year old woman who was referred by Dr. Mario Wharton for a cognitive evaluation due to concerns from Jazzmine's family regarding a change in cognitive performance. Formal assessment results obtained on 11.16.22, Jazzmine experiences significant cognitive communication deficits in the areas of memory and attention. This negatively impacts her decreased abilities of executive function (e.g., organization, planning, adaptable thinking, etc.) and affects her ability to functioning independently. Jazzmine was oriented to place and person, not time. She demonstrated difficulty recalling information with multiple rollins pieces of information (e.g., time, person, date, purpose) and complex sentences. She demonstrated some self- awareness of her performance and ability during the test when she verbally refelcted: I don't know what to do here or I know this is wrong. Based on formal assessment results obtained on 11.16.22, Jazzmine experiences significant cognitive communication deficits in the areas of memory and attention. This negatively impacts her decreased abilities of executive function (e.g., organization, planning, adaptable thinking, etc.) and affects her ability to functioning independently. Jazzmine was oriented to place and person, not time. She demonstrated difficulty recalling information with multiple rollins pieces of information (e.g., time, person, date, purpose) and complex sentences. She demonstrated some self- awareness of her performance and ability during the test when she verbally refelcted: I don't know what to do here or I know this is wrong. Subjective Identification Type Name,Date of Others Present Family Observations/Patient Presentation Jazzmine was accompanied by her 2 daughters. They reported that last , Jazzmine's , Champ, . Chief Complaint(s) Cognitive Patient Knowledge/Awareness of ROLL OUT MANAGER Role Fair in Treatment Parent/Caretake Knowledge/Awareness of Good ROLL OUT MANAGER Role in Treatment Objective Short Term Goals 1) Jazzmine and caregivers will be educated in, and will implement, external memory strategies to enable Jazzmine to maintain independence and ability to perform ADLs. 2) Jazzmine and caregivers will set up a white board in as a central location for information (e.g., calendar, notification white board and meal time check-off lists etc. ) to aid Jazzmine in orientation to planned activities and important information re: ADLs per pt/family report 3) Jazzmine will remember to check the white board for daily schedule/events, important and relevant information in everyday activities daily per pt/family report. Treatment Activities Jazzmine was seen again with her daughters. her daughters were wanting help with helping Jazzmine navigate this period. We discussed the potential for increased confusion and/or disorientation following significant changes for people with dementia. It was suggested that gentle redirection, cuing and assistance to keep Jazzmine focused on current activities. Daughters were concerned about Jazzmine living alone with memory issues. they are interested in options available for Jazzmine and when to start looking. Recommended that they allow Jazzmine time to adjust to this major change before adding another major change. Provided the daughters with written material about external memory aids with examples. Assessment Patient Response to Treatment Fair Rehab Potential Good Impairments Identified Cognitive communication Reviewed with Patient Goals,Home Exercise Program Patient/Caregiver Understanding Good Plan Amount of Therapy Recommended 3 Months Frequency of Treatment Once a Week Length of Session 60 Minutes Treatment Emphasis Next Session Prt/family education; strategy introduction Therapeutic Contents Cognitive-Linguistic Training Provided Patient/Caregiver Instruction Plan of Care,Questions/ Concerns Suggested Referral Neurology
--- NOTE | 2022-12-27 15:10 | ST.OPTN ---
Visit Care Team Role Provider Type Mario Wharton MD Attending Provider Physician Family Provider Primary Care Provider Referring Provider Address: [address] [place] [address], [address], [address] CAR SPOTTER Treatment Note CAR SPOTTER Clinical Instructor Line Start: 11/16/22 12:01 Freq: Status: Active Protocol: Document 11/16/22 12:23 (Rec: 11/16/22 13:25 [id number]) Clinical Instructor Signature Clinical Instructor Clinical Instructor Yes CAR SPOTTER Treatment Note Start: 11/23/22 14:59 Freq: Status: Active Protocol: Document 12/27/22 14:43 LNK (Rec: 12/27/22 15:10 LNK [id number]) Speech Pathology Treatment Note Session Time Visit Start Time 13:30 Visit Stop Time 14:30 Total Visit Minutes 60 Visit Information Visit Number 5 Plan of Care Dates 11/16/22 - 02/16/23 Setting Treatment Setting Outpatient Care Visit Type Note Type Treatment Note Next Note Type Next Note Type Treatment Note General Information Patient History Jazzmine is an 82 year old woman who was referred by Dr. Mario Wharton for a cognitive evaluation due to concerns from Jazzmine's family regarding a change in cognitive performance. Formal assessment results obtained on 11.16.22, Jazzmine experiences significant cognitive communication deficits in the areas of memory and attention. This negatively impacts her decreased abilities of executive function (e.g., organization, planning, adaptable thinking, etc.) and affects her ability to functioning independently. Jazzmine was oriented to place and person, not time. She demonstrated difficulty recalling information with multiple rollins pieces of information (e.g., time, person, date, purpose) and complex sentences. She demonstrated some self- awareness of her performance and ability during the test when she verbally reflected: I don't know what to do here or I know this is wrong. Based on formal assessment results obtained on 11.16.22, Jazzmine experiences significant cognitive communication deficits in the areas of memory and attention. This negatively impacts her decreased abilities of executive function (e.g., organization, planning, adaptable thinking, etc.) and affects her ability to functioning independently. Jazzmine was oriented to place and person, not time. She demonstrated difficulty recalling information with multiple rollins pieces of information (e.g., time, person, date, purpose) and complex sentences. She demonstrated some self- awareness of her performance and ability during the test when she verbally reflected: I don't know what to do here or I know this is wrong. Subjective Identification Type Name,Date of Others Present Family Observations/Patient Presentation Jazzmine was accompanied by her daughter. Her daughter reported that Jazzmine has been keeping busy with her friends and going to the [facility] a couple days each week. She is missing her . Chief Complaint(s) Cognitive Patient Knowledge/Awareness of CAR SPOTTER Role Fair in Treatment Parent/Caretake Knowledge/Awareness of Good CAR SPOTTER Role in Treatment Objective Short Term Goals 1) Jazzmine and caregivers will be educated in, and will implement, external memory strategies to enable Jazzmine to maintain independence and ability to perform ADLs. 2) Jazzmine and caregivers will set up a white board in as a central location for information (e.g., calendar, notification white board and meal time check-off lists etc. ) to aid Jazzmine in orientation to planned activities and important information re: ADLs per pt/family report 3) Jazzmine will remember to check the white board for daily schedule/events, important and relevant information in everyday activities daily per pt/family report. Treatment Activities Jazzmine and her daughter reported that there has been some progress with simplifying Jazzmine's home and keeping her calendar updated. her daughter reported that she has not noticed any increase in confusion and/or disorientation behaviors observed. Reviewed family progress with external memory aids as well as more efficient ways to help Jazzmine with ADLs (i.e., microwave cooking, prepackaged medications, etc.). Jazzmine reported that she feels safe in her home and with her daughter next door, she is comfortable staying in her home. Labels, reminder lists, calendar updates, and a centralized place for information have been initiated. Both Jazzmine and her daughter feel that they need some time to implement these strategies at Jazzmine's home and agreed to take a short break from ST. Jazzmine is scheduled to return in 1 month. Assessment Patient Response to Treatment Fair Rehab Potential Good Impairments Identified Cognitive communication Reviewed with Patient Goals,Home Exercise Program Patient/Caregiver Understanding Good Plan Amount of Therapy Recommended 3 Months Frequency of Treatment Once a Week Length of Session 60 Minutes Treatment Emphasis Next Session Prt/family education; strategy introduction Therapeutic Contents Cognitive-Linguistic Training Provided Patient/Caregiver Instruction Plan of Care,Questions/ Concerns Suggested Referral Neurology
--- NOTE | 2023-02-07 16:44 | ST.OPTN ---
Visit Care Team Role Provider Type Mario Wharton MD Attending Provider Physician Family Provider Primary Care Provider Referring Provider Address: [address] [place] [address], [address], [address] LADIES' LOCKER ROOM ATTENDANT Treatment Note LADIES' LOCKER ROOM ATTENDANT Clinical Instructor Line Start: 11/16/22 12:01 Freq: Status: Active Protocol: Document 02/07/23 14:53 BE (Rec: 02/07/23 15:31 BE [id number]) Clinical Instructor Signature Clinical Instructor Clinical Instructor Yes LADIES' LOCKER ROOM ATTENDANT Treatment Note Start: 11/23/22 14:59 Freq: Status: Active Protocol: Document 02/07/23 14:53 BE (Rec: 02/07/23 15:31 BE [id number]) Speech Pathology Treatment Note Session Time Visit Start Time 13:15 Visit Stop Time 14:15 Total Visit Minutes 60 Visit Information Visit Number 6 Plan of Care Dates 11/16/22 - 02/16/23 Setting Treatment Setting Outpatient Care Visit Type Note Type Treatment Note Next Note Type Next Note Type Treatment Note General Information Patient History Jazzmine is an 82 year old woman who was referred by Dr. Mario Wharton for a cognitive evaluation due to concerns from Jazzmine's family regarding a change in cognitive performance. Formal assessment results obtained on 11.16.22, Jazzmine experiences significant cognitive communication deficits in the areas of memory and attention. This negatively impacts her decreased abilities of executive function (e.g., organization, planning, adaptable thinking, etc.) and affects her ability to functioning independently. Jazzmine was oriented to place and person, not time. She demonstrated difficulty recalling information with multiple rollins pieces of information (e.g., time, person, date, purpose) and complex sentences. She demonstrated some self- awareness of her performance and ability during the test when she verbally refelcted: I don't know what to do here or I know this is wrong. Based on formal assessment results obtained on 11.16.22, Jazzmine experiences significant cognitive communication deficits in the areas of memory and attention. This negatively impacts her decreased abilities of executive function (e.g., organization, planning, adaptable thinking, etc.) and affects her ability to functioning independently. Jazzmine was oriented to place and person, not time. She demonstrated difficulty recalling information with multiple rollins pieces of information (e.g., time, person, date, purpose) and complex sentences. She demonstrated some self- awareness of her performance and ability during the test when she verbally refelcted: I don't know what to do here or I know this is wrong. Subjective Identification Type Name,Date of Others Present Family Observations/Patient Presentation Jazzmine was accompanied by her daughter and granddaughter. Chief Complaint(s) Cognitive Patient Knowledge/Awareness of LADIES' LOCKER ROOM ATTENDANT Role Fair in Treatment Parent/Caretake Knowledge/Awareness of Good LADIES' LOCKER ROOM ATTENDANT Role in Treatment Objective Short Term Goals 1) Jazzmine and caregivers will be educated in, and will implement, external memory strategies to enable Jazzmine to maintain independence and ability to perform ADLs. 2) Jazzmine and caregivers will set up a white board in as a central location for information (e.g., calendar, notification white board and meal time check-off lists etc. ) to aid Jazzmine in orientation to planned activities and important information re: ADLs per pt/family report 3) Jazzmine will remember to check the white board for daily schedule/events, important and relevant information in everyday activities daily per pt/family report. Treatment Activities Jazzmine stated that she regularly checks her calendar to refer to to-do list, but has difficulty orienting to date. Her daughter reported that she has noticed an increase in confusion, disorientation, irritability, and memory discrepencies. These observed changes increase in severity during evening hours. Her daughter cited challenges that included Jazzmine wearing the same clothes multiple times in a row without washing, delusions (stolen jewelry, false memories of visitors). Provided daughter resources to navigate caregiving and redirection with her mother (i .e., caregiver support group information, information). Discussed why orienting her to some realities is not beneficial, and when it can be. Reviewed family progress with external memory aids as well as with support for ADLs (i.e., microwave cooking, prepackaged medications, etc.). Per previous visit, clear direction was given that Jazzmine should not be using stove- Jazzmine reported continued use of stove at home, unbeknownst to daughter. Suggested disabling of stove due to safety concerns. Jazzmine reported going on daily walks by herself. Daughter stated that she can track her mother using iPhone bre ([employer])- stated importance of easy-to- find medical identification (i .e., bracelet, business card). Due to current challenges with memory, orientation, and safety concerns, discussed memory care. Jazzmine reported that she feels safe in her home with her daughter next door, and does not see a need for prison care. Jazzmine stated that she is not comfortable having someone outside of the family in her home (i.e., caregivers). She expressed frustration with her daughter's recent role of caregiver, including being told she's not doing things she believes she is doing. Jazzmine stated that she wishes she had more social interaction, and is currently getting most of her social interaction from the [facility]. Lables, reminder lists , calendar updates, and a centralized place for information have been continued from last session. Assessment Patient Response to Treatment Fair Rehab Potential Good Impairments Identified Cognitive communication Assessment of Overall Progress Declining Assessment of Improvement Pt declining; consultation with MD recommended. Reviewed with Patient Goals,Home Exercise Program Patient/Caregiver Understanding Good Plan Amount of Therapy Recommended 3 Months Frequency of Treatment Once a Week Length of Session 60 Minutes Treatment Emphasis Next Session Prt/family education; care options Therapeutic Contents Cognitive-Linguistic Training Provided Patient/Caregiver Instruction Plan of Care,Questions/ Concerns Suggested Referral Neurology
--- NOTE | 2023-03-01 10:20 | ST.OPDS ---
Visit Care Team Role Provider Type Mario Wharton MD Attending Provider Physician Family Provider Primary Care Provider Referring Provider Address: [address] [place] [address], [address], [id number] TSO Treatment Note TSO Clinical Instructor Line Start: 11/16/22 12:01 Freq: Status: Active Protocol: Document 02/07/23 14:53 BE (Rec: 02/07/23 15:31 BE [id number]) Clinical Instructor Signature Clinical Instructor Clinical Instructor Yes TSO Treatment Note Start: 11/23/22 14:59 Freq: Status: Active Protocol: Document 03/01/23 10:17 LNK (Rec: 03/01/23 10:20 LNK [id number]) Speech Pathology Treatment Note Setting Treatment Setting Outpatient Care Visit Type Note Type Discharge Summary General Information Patient History Jazzmine is an 82 year old woman who was referred by Dr. Mario Wharton for a cognitive evaluation due to concerns from Jazzmine's family regarding a change in cognitive performance. Formal assessment results obtained on 11.16.22, Jazzmine experiences significant cognitive communication deficits in the areas of memory and attention. This negatively impacts her decreased abilities of executive function (e.g., organization, planning, adaptable thinking, etc.) and affects her ability to functioning independently. Jazzmine was oriented to place and person, not time. She demonstrated difficulty recalling information with multiple rollins pieces of information (e.g., time, person, date, purpose) and complex sentences. She demonstrated some self- awareness of her performance and ability during the test when she verbally reflected: I don't know what to do here or I know this is wrong. Based on formal assessment results obtained on 11.16.22, Jazzmine experiences significant cognitive communication deficits in the areas of memory and attention. This negatively impacts her decreased abilities of executive function (e.g., organization, planning, adaptable thinking, etc.) and affects her ability to functioning independently. Jazzmine was oriented to place and person, not time. She demonstrated difficulty recalling information with multiple rollins pieces of information (e.g., time, person, date, purpose) and complex sentences. She demonstrated some self- awareness of her performance and ability during the test when she verbally reflected: I don't know what to do here or I know this is wrong. Subjective Observations/Patient Presentation Jazzmine was accompanied by her daughter (s) for all sessions . Patient Knowledge/Awareness of TSO Role Fair in Treatment Parent/Caretake Knowledge/Awareness of Good TSO Role in Treatment Objective Treatment Activities pt has not been seen since and has not scheduled any more appointments. Will discharge at this time Assessment Assessment of Improvement Pt declining; consultation with MD recommended. Plan Amount of Therapy Recommended No Further Therapy Frequency of Treatment No Further Therapy Therapy Recommendations Discharge from Speech Therapy
== END 2023-03-05 14:06 | disposition home or self-care (01) ==
LOC: SP 13:15
PROVIDERS: Family Provider Student in an Organized Health Care Education/Training Program; PCP Student in an Organized Health Care Education/Training Program; Referring Provider Student in an Organized Health Care Education/Training Program; Visit Provider Student in an Organized Health Care Education/Training Program
DX: R41.3 Other amnesia (principal)
CPT/HCPCS: 96125; 97129; 97130

== ENCOUNTER → 2024-05-21 17:46 | Outpatient (CLI) | payer MEDICARE, BC, SELFPAY ==
[2024-05-21 18:34] LABS: Cholesterol 156 mg/dL (140-199); HDL Cholesterol 58 mg/dL (40-60); LDL Cholesterol Calculated 51 mg/dL (<100); Triglycerides 234 mg/dL (35-150)
== END ==
LOC: LAB 17:47
PROVIDERS: Family Provider Student in an Organized Health Care Education/Training Program; PCP Family Medicine; Referring Provider Family Medicine; Visit Provider Family Medicine
DX: E78.00 Pure hypercholesterolemia, unspecified (principal)
CPT/HCPCS: 36415; 80061

== ENCOUNTER → 2025-05-18 11:24 | Outpatient (CLI) | payer MEDICARE, BC, SELFPAY ==
--- NOTE | 2025-05-18 11:25 | DI.RAD.S_ITS ---
PROCEDURE: XR DEXA AXIAL SKELETON INDICATIONS: osteoporosis COMPARISON: [facility], [place], XR DEXA AXIAL SKELETON, 11/09/2022, 14:39. FINDINGS: Lumbar Spine: Bone mineral density 0.993 (previously 0.964) g/cm2, T score -0.2 (previously -0.5). Left Femoral Neck: Bone mineral density 0.669 (previously 0.705) g/cm2, T score -1.6 (previously -1.3). Left Hip: Bone mineral density 0.911 (previously 0.910) g/cm2, T score -0.3 (previously -0.3). Fracture Risk Calculation (when applicable): 10-year fracture risk of a major osteoporotic fracture 14 percent and of a hip fracture 3.9 percent. (T score greater or equal to -1.0 to: NORMAL) (T score from -1.1 to -2.4: OSTEOPENIA) (T score less than or equal to -2.5: OSTEOPOROSIS) IMPRESSION: Osteopenia--- recommend repeat DEXA in 2-3 years for reassessment. Follow-up guidelines as follows: Osteoporosis: Consider a repeat DEXA and Vertebral Fracture Assessment (VFA) exam in 2 years or sooner if medically necessary, to reassess this patient's status. Osteopenia: Consider a repeat DEXA in 2-3 years to reassess this patient's status, or if there is a new clinical indication. Normal: Consider a repeat DEXA in 5 years or sooner, or if there is a new clinical indication. All treatment decisions require clinical judgment and consideration of individual patient factors, including patient preferences, comorbidities, previous drug use, risk factors not captured in the FRAX model (e.g., frailty, falls, vitamin D deficiency, increased bone turnover, interval significant decline in bone density ) and possible under- or over-estimation of fracture risk by FRAX. In addition, the NOF Guide recommends that FDA-approved medical therapies be considered in postmenopausal women and men age >= 50 years with a: * Hip or vertebral (clinical or morphometric) fracture * T-score of <=-2.5 at the spine or hip * Ten-year fracture probability by FRAX of >= 3% for hip fracture or >=20% for major osteoporotic fracture. Dictated by: Antwon Manjarrez M.D. on 05/18/2025 at 20:51 Approved by: Antwon Manjarrez M.D. on 05/18/2025 at 20:54
== END ==
LOC: RAD 11:25
PROVIDERS: PCP Family Medicine; Referring Provider Family Medicine; Visit Provider Family Medicine
DX: M81.0 Age-related osteoporosis without current pathological fracture (principal)
CPT/HCPCS: 77080

== ENCOUNTER → 2025-08-15 11:29 | Outpatient (CLI) | payer MEDICARE, BC, SELFPAY ==
[2025-08-15 12:12] LABS: Alanine Aminotransferase 22 IU/L (<35); Albumin 4.8 g/dL (3.5-5.0); Albumin Globulin Ratio 1.7 (1.0-2.8); Alkaline Phosphatase 60 U/L (38-126); Blood Urea Nitrogen 22 mg/dL (7-17); Calcium 9.9 mg/dL (8.4-10.2); Carbon Dioxide 28 mmol/L (22-32); Chloride 103 mmol/L (98-107); Cholesterol 242 mg/dL (140-199); Estimated Glomerular Filt Rate 49 mL/min (>60); Globulin 2.9 g/dL (1.7-4.1); Glucose 105 mg/dL (70-99); HDL Cholesterol 51 mg/dL (40-60); HEMOLYSIS < 15 (0-50); Potassium 4.1 mmol/L (3.4-5.1); Sodium 139 mmol/L (137-145); Total Protein 7.7 g/dL (6.3-8.2); Triglycerides 226 mg/dL (35-150)
== END ==
PROVIDERS: PCP Family Medicine; Referring Provider Family Medicine; Visit Provider Family Medicine
DX: E78.00 Pure hypercholesterolemia, unspecified (principal); M15.0 Primary generalized (osteo)arthritis; I10 Essential (primary) hypertension
CPT/HCPCS: 36415; 80053; 80061